=== PATIENT | female | born 1985 | race Caucasian/White ===

== ENCOUNTER 2017-08-04 23:05 | Inpatient (IN) | payer BC ==
[2017-08-04] MEDS ORDERED: Oxytocin 10 Units/1 ML SDV IM ONE (23:56)
--- NOTE | 2017-08-05 08:12 | PCM.LDHP ---
L&D History of Present Illness - General Admit Problem/Dx: Patient Status Order with Admit Dx/Problem 08/04/17 23:56 Patient Status [ADT] Routine Admission Diagnosis/Problem Admission Diagnosis/Problem 08/05/17 07:43 DATE OF ADMISSION: 08/05/2017 ADMISSION DIAGNOSES: A 39 and 1/7th week intrauterine , active labor HISTORY OF PRESENT ILLNESS: This patient is a 31 year old, 6, para 3-0-2-3 female who was admitted at 39 and 1/7ths weeks gestational age with an TIAGO of 08/11/2017 in active labor. She has been delmer regularly every 4-6 minutes since yesterday 08/04/2017 at 4pm. CUSTOMER SOLUTIONS REPRESENTATIVE HISTORY: 6, para 3-0-2-3. The patient has an TIAGO of 08/11/2017 based on a definite LMP of 11/04/2016. The patient was first seen for care on 09/2016 at 11 and 6/7ths weeks gestational age. She was seen on a regular basis throughout the duration of the . Her weight gain was approximately 19 pounds from her first visit until today, starting with a weight of 155 pounds and ending today at 174 pounds. Her vital signs have remained stable throughout the and fundal height growth has been appropriate. She plans on . She is group B Strep negative. She plans on doing a natural labor. PAST OBSTETRIC HISTORY: 1. Spontaneous x2 2. Female infant born on 07/12/2009 at 39 weeks gestational age after 30 hours of labor - 7 pounds, 9 ounces - via vaginal delivery with the use of a vacuum. Child's name is Geovanna. 3. Female infant born on 01/01/2011 at 39 weeks gestational age after 32 hours of labor - 7 pounds, 6 ounces - via normal spontaneous vaginal delivery. Child' s name is Tia. 4. Male born on 11/13/2013 at 37 weeks gestational age after 20 hours of labor - 7 pounds, 5 ounces - via normal spontaneous vaginal delivery. Child's name is Emiliano Moore. LABORATORY TESTING: Initial testing shows blood to be A positive with a negative antibody screen. Hemoglobin at first visit was 13.5 g/dL and platelets at 331,000. Rubella titer showed immunity. RPR was nonreactive. HIV and Hepatitis B assays were both negative. Chlamydia and gonorrhea assays were both negative. Second trimester testing showed hemoglobin to be 12.3 g/dL. Her 1 hour GTT was borderline at 133 but her 3 hour GTT was found to WNL. Group B Strep screen was negative. ALLERGIES: Penicillin - resulting in a rash CURRENT MEDICATIONS: 1. Pediatric MultiVitamins x2/day 2. Aspirin 81 mg x1/day PRN 3-4x/week PAST MEDICAL HISTORY: 1. Vaginal delivery x3 2. Spontaneous x2 3. Fracture of right arm 4. History of sinus infection 5. History of urinary tract infection PAST SURGICAL HISTORY: 1. Nazlini teeth extraction 2. D&C in 2009 FAMILY HISTORY: Significant only for a MGM with diabetes and a MGF with hypertension. No bleeding, clotting, anesthesia, or problems noted in the family. SOCIAL HISTORY: The patient is . is Bandar Shah. [place] of [place], [place]. She works at [employer]. She does not use alcohol, drugs, or tobacco. REVIEW OF SYSTEMS: GENERAL: Patient is doing well. Baby has been active. No concerns at this time. SKIN: Negative. CARDIOVASCULAR: No chest pain or exercise intolerance. RESPIRATORY: No shortness of breath or infectious symptoms. BREASTS: Changes associated with . Patient plans to breastfeed. GASTROINTESTINAL: Negative. GENITOURINARY: Changes associated with . MUSCULOSKELETAL: Negative. NEUROLOGIC: Negative. PHYSICAL EXAMINATION: GENERAL: Patient is a well-developed, well-nourished, pleasant female who appears her stated age and in no acute distress. VITAL SIGNS: Blood pressure on last evaluation in the clinic was 108/60, weight was 174 after a weight gain of 19 pounds since first visit at 11 and 6/ 7ths weeks. heart rate was 153. Height is 5 feet, 4 inches. SKIN: Warm and dry without lesions. HEENT, NECK, BACK: Within normal limits. CARDIOVASCULAR: Regular rate and rhythm without murmurs. RESPIRATORY: Clear with good breath sounds in all lung headley. BREASTS: Deferred at this time. ABDOMEN: Protuberant with . Baby is in vertex presentation by Juwan maneuvers. GENITAL: Shows cervix to be 4cm, 90% effaced, soft, -3 station, and posterior position. EXTREMITIES: Shows no significant edema to be present. NEUROLOGIC: Grossly within normal limits. ASSESSMENT: 1. A 39 and 1/7ths week intrauterine who presents to L and D in active labor. 2. Rubella titer shows immunity. 3. Group B Strep screen is negative. 4. The patient plans to breastfeed. 5. The patient desires a natural labor. PLAN: 1. Artificial rupture of membranes. 2. Support decision. 3. Natural labor or pain control as desired by the patient. - Related Data Allergies/Adverse Reactions: Allergies Allergy/AdvReac Type Severity Reaction Status Date / Time penicillin Allergy Rash Verified 11/13/14 04:26 Home Medications: Home Meds PNV95/Ferrous Fumarate/FA [ Multivitamins] 1 each PO DAILY 11/13/14 [ History] Ibuprofen [Motrin] 600 mg PO Q6H PRN #0 tablet 11/15/14 [Rx] Past Medical History - Past Health History Medical/Surgical History: Denies Medical/Surgical History Gastrointestinal History: Reports: Hemorrhoids Other Gastrointestinal History: Throughout the , intermittently has s/ s hemorrhoids Genitourinary History: Reports: Other (See Below) Other Genitourinary History: Hx of UTI though not with this CUSTOMER SOLUTIONS REPRESENTATIVE History: Reports: , Spontaneous Other OB/BYN History: D&C 2009 - Past Surgical History HEENT Surgical History: Reports: Oral Surgery Other HEENT Surgeries/Procedures: Nazlini teeth extracted GI Surgical History: Reports: None Female Surgical History: Reports: D&C Dermatological Surgical History: Reports: None Social & Family History - Family History Family Medical History: Noncontributory - Tobacco Use Smoking Status *Q: Never Smoker Second Hand Smoke Exposure: No - Caffeine Use Caffeine Use: Reports: Coffee Other Caffeine Use: Occasional - Recreational Drug Use Recreational Drug Use: No H&P Review of Systems - Review of Systems: Review Of Systems: See Below L&D Exam - Exam Exam: See Below - Vital Signs Vital Signs: Last Vital Signs Temp 98.7 F 08/04/17 23:56 Pulse 78 08/04/17 23:56 Resp 16 08/04/17 23:56 BP 132/68 08/04/17 23:56 Pulse Ox 97 08/04/17 23:56 Weight: 174 lb Problem List Initiated/Reviewed/Updated: Yes Orders Last 24hrs: Active Orders 24 hr Category Date Time Status Patient Status [ADT] Routine ADT 08/04/17 23:56 Active Activity as Tolerated [RC] PFP Care 08/04/17 23:56 Active Communication Order [RC] ASDIRECTED Care 08/04/17 23:56 Active Heart Tones [RC] ASDIRECTED Care 08/04/17 23:56 Active Notify Provider [RC] PFP Care 08/04/17 23:56 Active Notify Provider [RC] PRN Care 08/04/17 23:56 Active Vital Signs [RC] PER UNIT ROUTINE Care 08/04/17 23:56 Active Clear Liquid Diet [DIET] Diet 08/05/17 Breakfast Active Electronic Heart Tones Ext w TOCO [WOMSER] Oth 08/04/17 23:56 Ordered Routine Electronic Heart Tones Internal [WOMSER] Per Unit Oth 08/04/17 23:56 Ordered Routine Resuscitation Status Routine Resus Stat 08/04/17 23:56 Ordered
[2017-08-05] MEDS ORDERED: Oxytocin 10 Units/1 ML SDV ONE (08:27)
[2017-08-05] MEDS ORDERED: Lidocaine 1% 50 ML MDV ONE (10:21)
[2017-08-05] MEDS ORDERED: Lidocaine 1% 50 ML MDV INJECT ONE (11:24)
--- NOTE | 2017-08-05 11:50 | PCM.SN ---
- Free Text/Narrative Note: Delivery note: Ana is a 6 now para 4024 white female who was admitted during the night of 08/05/2017 in early active labor. She is normally seen by Dr. Savage in clinic. She progressed approximate 4 cm at which time artificial rupture membranes was undertaken. Patient refused an IV and did not want any analgesia. She progressed to complete cervical dilation by approximately 1050 hrs. She pushed for approximately 15-20 minutes and delivered a viable, crawford, female with Apgars 8 and 9, a weight of 8 pounds 2 ounces, a length of 19 inches in a right occiput anterior position. The baby delivered without problems at 1118 hrs. and was placed on mom's abdomen. Cord was clamped 2 and cut. Patient was encouraged to nurse shortly after delivery to facilitate release of Pitocin and decrease the likelihood of bleeding. Nose and muscle of the baby were bulb suctioned. Cord blood was obtained. The placenta delivered in a Lee fashion, appeared intact and complete at 1130 hrs. and was discarded per patient desire. A small first-degree perineal laceration site was infiltrated with lidocaine 1% approximately 8-10 mL and was closed with a short running suture of 3-0 Monocryl. Estimated blood loss was approximately 100 mL. Patient wants to breast-feed. Condition: Good
[2017-08-05] MEDS ORDERED: Acetaminophen 325 MG Tab PO PRN (12:04)
[2017-08-05] MEDS ORDERED: Witch Hazel Medicated Pads 100/Jar TOP PRN (12:04)
[2017-08-05] MEDS ORDERED: Docusate Sodium 100 MG Cap PO PRN (12:04)
[2017-08-05] MEDS ORDERED: Benzocaine/Menthol 20%-0.5% Spray 56 GM Canister TOP PRN (12:04)
[2017-08-05] MEDS ORDERED: Ibuprofen 600 MG Tab PO PRN (12:04)
[2017-08-05] MEDS ORDERED: Lanolin 100% Cream 7 GM Tube TOP PRN (12:04)
[2017-08-06 05:22] VITALS: BP 107/82
--- NOTE | 2017-08-06 05:33 | PCM.DCSUM1 ---
Discharge Summary - Hospital Course Free Text/Narrative:: Ana is a 7 now para 4024 white female who was admitted during the night of 08/05/2017 in early active labor. She is normally seen by Dr. Savage in clinic. She progressed approximate 4 cm at which time artificial rupture membranes was undertaken. Patient refused an IV and did not want any analgesia. She progressed to complete cervical dilation by approximately 1050 hrs. She pushed for approximately 15-20 minutes and delivered a viable, crawford, female with Apgars 8 and 9, a weight of 8 pounds 2 ounces, a length of 19 inches in a right occiput anterior position. The baby delivered without problems at 1118 hrs. and was placed on mom's abdomen. Cord was clamped 2 and cut. Patient was encouraged to nurse shortly after delivery to facilitate release of Pitocin and decrease the likelihood of bleeding. Nose and muscle of the baby were bulb suctioned. Cord blood was obtained. The placenta delivered in a Lee fashion, appeared intact and complete at 1130 hrs. and was discarded per patient desire. A small first-degree perineal laceration site was infiltrated with lidocaine 1% approximately 8-10 mL and was closed with a short running suture of 3-0 Monocryl. Estimated blood loss was approximately 100 mL. Patient wants to breast-feed. patient's done fine. She is nursing without problems, ambulating well and had minimal lochia. Pain is under good control. She is desiring discharge home. - Discharge Data Discharge Date: 08/06/17 Discharge Disposition: Home, Self-Care 01 Condition: Good - Patient Instructions Diet: Regular Diet as Tolerated (Nursing diet and increase calories and calcium as directed) Activity: As Tolerated (No intercourse or tampons until bleeding resolves) Driving: May Drive Today Showering/Bathing: May Shower (May take a bath) Notify Provider of: Fever, Increased Pain, Swelling and Redness, Nausea and/or Vomiting - Discharge Plan Home Medications: Home Meds PNV95/Ferrous Fumarate/FA [ Multivitamins] 1 each PO DAILY 11/13/14 [ History] Ibuprofen [Motrin] 600 mg PO Q6H PRN #0 tablet 11/15/14 [Rx] Acetaminophen [Tylenol] 650 mg PO Q4H PRN tablet 08/06/17 [Rx] Ibuprofen [IJD: Ibuprofen] 600 mg PO Q4H PRN tablet 08/06/17 [Rx] - Discharge Summary/Plan Comment DC Time >30 min.: No Discharge Summary/Plan Comment: Discharge instructions: 1. Discharge home 2. Diet, activity and follow-up discussed with patient. Recommend nursing diet with increased calories and calcium. 3. Precautions given concern increased pain, bleeding, temperature, signs/ symptoms of DVT/PE. 4. Medications per home medication was printed, discussed with and given to the patient. 5. Return to clinic-Dr. Savage at [facility] in 6 weeks. Diagnosis: Term -delivered Condition: Good - Patient Data Vitals - Most Recent: Last Vital Signs Temp 36.8 C 08/06/17 04:59 Pulse 78 08/06/17 04:59 Resp 15 08/06/17 04:59 BP 107/82 08/06/17 04:59 Pulse Ox 97 08/06/17 04:59 Weight - Most Recent: 78.925 kg Med Orders - Current: Current Medications Acetaminophen (Tylenol) 650 mg PO Q4H PRN PRN Reason: mild pain or fever Last Admin: 08/05/17 20:38 Dose: 650 mg Benzocaine/Menthol (Dermoplast Pain Relief [place]) 0 gm TOP ASDIRECTED PRN PRN Reason: Perineal Comfort Measure Last Admin: 08/05/17 12:39 Dose: 1 applic Docusate Sodium (Colace) 100 mg PO BID PRN PRN Reason: Constipation Emollient Ointment (Lansinoh Hpa) 0 gm TOP ASDIRECTED PRN PRN Reason: Sore Nipples Ibuprofen (Motrin) 600 mg PO Q4H PRN PRN Reason: Mild pain or fever Witch [place] (Tucks) 1 pad TOP ASDIRECTED PRN PRN Reason: Hemorrhoid pain Last Admin: 08/05/17 12:39 Dose: 1 applic Discontinued Medications Lidocaine HCl (Xylocaine 1%) Confirm Administered Dose 50 ml .ROUTE .STK-MED ONE Stop: 08/05/17 10:22 Last Admin: 08/05/17 11:54 Dose: Not Given Lidocaine HCl (Xylocaine 1%) 10 ml INJECT ONETIME ONE Stop: 08/05/17 11:25 Last Admin: 08/05/17 11:55 Dose: 10 ml Oxytocin (Pitocin) 10 unit IM ONETIME ONE Stop: 08/04/17 23:57 Last Admin: 08/05/17 14:36 Dose: Not Given Oxytocin (Pitocin) Confirm Administered Dose 10 unit .ROUTE .STK-MED ONE Stop: 08/05/17 08:28 Last Admin: 08/05/17 11:54 Dose: Not Given
== END 2017-08-06 12:29 | disposition home or self-care (01) | DRG 560 ==
LOC: JD.OB 23:05 → JD.OBCHECK 23:05 → JD.OB 23:57 → JD.OBCHECK 23:57 → OBSVTOIN 08-05 11:18 → JD.OB 08-05 11:19
PROVIDERS: ADMIT Obstetrics & Gynecology; ATTEND Obstetrics & Gynecology
PROC: 10E0XZZ Delivery of Products of Conception, External Approach (ICD-10-PCS; principal; 2017-08-05)
PROC: 10907ZC Drainage of Amniotic Fluid, Therapeutic from Products of Conception, Via Natural or Artificial Opening (ICD-10-PCS; 2017-08-05)
PROC: 6A550ZT Pheresis of Cord Blood Stem Cells, Single (ICD-10-PCS; 2017-08-05)
PROC: 0HQ9XZZ Repair Perineum Skin, External Approach (ICD-10-PCS; 2017-08-05)
DX: O70.0 First degree perineal laceration during delivery (principal); Z3A.39 39 weeks gestation of pregnancy; Z37.0 Single live birth; Z88.0 Allergy status to penicillin; Z87.440 Personal history of urinary (tract) infections
CPT/HCPCS: 36415; 59025; 59300; 59409; 85027; A9270-GY